=== PATIENT | male | born 1950 | race Caucasian/White ===

== ENCOUNTER 2019-09-11 18:59 | Inpatient (IN) ==
[2019-09-11] MEDS ORDERED: LEVOFLOXACIN INJ 750 MG in PREMIX 1 EACH IV STA (20:39)
[2019-09-11] MEDS ORDERED: methylPREDNISolone SOD SUC 125 MG/2 ML VIAL IV STA (20:39)
[2019-09-11] MEDS ORDERED: ALBUTEROL/IPRATROPIUM 3 ML NEB RESP TX STA (20:39)
[2019-09-11 21:23] LABS: Basophils # 0.1 10*3/uL (0.0-0.2); Basophils % 0.4 % (0.0-0.8); Eosinophils # 0.3 10*3/uL (0.0-0.87); Eosinophils % 2.7 % (0.00-10.9); Hematocrit 46.9 VOL% (42.0-52.0); Hemoglobin 14.7 GM/DL (14.0-18.0); Immature Granulocytes % 0.4 %; Immature Granulocytes Absolute 0.05 #; Lymphocytes # 1.1 10*3/uL (1.4-4.0); Lymphocytes % 9.2 % (21.2-54.2); Mean Corpuscular HGB Conc 31.3 GM/DL (32-36); Mean Corpuscular Volume 89.7 FL (87-102); Mean Platelet Volume 12.2 FL (9.6-12.0); Monocytes % 7.1 % (1.7-12.7); Neutrophils % 80.2 % (38.7-73.9); Platelet Count 162 T/CUMM (130-400); Red Blood Count 5.23 MC/CUMM (3.8-5.5); Red Cell Distribution Width 16.9 % (9.3-17.3); White Blood Count 12.1 T/CUMM (4-12)
[2019-09-11 21:44] LABS: Calcium 8.8 MG/DL (8.5-10.1)
[2019-09-11 21:48] LABS: CKMB % 0.7 %; Troponin I 0.016 NG/ML (0.00-0.045)
[2019-09-11] MEDS ORDERED: ONDANSETRON 4 MG/2 ML VIAL IV PRN (22:44)
[2019-09-11] MEDS ORDERED: ACETAMINOPHEN 325 MG TABLET PO PRN (22:44)
[2019-09-11] MEDS ORDERED: MORPHINE 4 MG/1 ML VIAL IV PRN (22:44)
[2019-09-11] MEDS ORDERED: ZALEPLON 5 MG CAPSULE PO PRN (22:44)
[2019-09-11] MEDS ORDERED: ALBUTEROL 2.5 MG/3 ML NEB RESP TX PRN (22:47)
[2019-09-11 23:24] LABS: Allen Test Positive
[2019-09-11 23:25] LABS: ABG Base Excess 0.3 MMOL/L (-2.5-2.5); ABG HCO3 24.6 MMOL/L (20-26); ABG Oxygen Saturation 94.8 % (95-100); ABG PCO2 35.6 MM HG (35-48); ABG PH 7.436 (7.35-7.45); ABG TCO2 20.3 MMOL/L (23-27)
[2019-09-11] MEDS: ALBUTEROL/IPRATROPIUM 3 ML NEB RESP TX SCH (23:35)
[2019-09-12] MEDS ORDERED: methylPREDNISolone SOD SUC 125 MG/2 ML VIAL IV SCH (02:00)
[2019-09-12] MEDS: ALBUTEROL/IPRATROPIUM 3 ML NEB RESP TX SCH ×4 (04:05→15:02)
[2019-09-12 05:15] LABS: Basophils % 0.2 % (0.0-0.8); Eosinophils % 0.2 % (0.00-10.9); Hematocrit 47.7 VOL% (42.0-52.0); Hemoglobin 14.9 GM/DL (14.0-18.0); Immature Granulocytes % 0.4 %; Immature Granulocytes Absolute 0.04 #; Lymphocytes # 0.5 10*3/uL (1.4-4.0); Lymphocytes % 4.5 % (21.2-54.2); Mean Corpuscular HGB Conc 31.2 GM/DL (32-36); Mean Corpuscular Volume 89.2 FL (87-102); Mean Platelet Volume 12.4 FL (9.6-12.0); Monocytes % 1.7 % (1.7-12.7); Platelet Count 171 T/CUMM (130-400); Red Blood Count 5.35 MC/CUMM (3.8-5.5); White Blood Count 10.9 T/CUMM (4-12)
[2019-09-12 05:33] LABS: Calcium 8.9 MG/DL (8.5-10.1); Osmolality,Calculated 289.1 MOS/KG (273-304)
[2019-09-12] MEDS ORDERED: CLORAZEPATE 7.5 MG TABLET PO PRN (05:52)
[2019-09-12 06:21] LABS: Lymphocytes 1 % (20-55); Metamyelocytes 1 %; Platelet Estimate Adequate; Polychromasia Few; Segmented Neutrophils 97 % (50-85); Total Cells Counted 100
[2019-09-12] MEDS: FUROSEMIDE 40 MG/4 ML VIAL IV SCH (08:23)
[2019-09-12] MEDS: METOPROLOL SUCCINATE XL 50 MG TABLET PO SCH (08:23)
[2019-09-12] MEDS: allopurinoL 300 MG TABLET PO SCH (08:23)
[2019-09-12] MEDS: PANTOPRAZOLE 40 MG TABLET PO SCH (08:23)
[2019-09-12] MEDS: TAMSULOSIN 0.4 MG CAPSULE PO SCH (08:23)
[2019-09-12] MEDS ORDERED: ENOXAPARIN 40 MG/0.4 ML SYRINGE SUBCUT SCH (09:00)
[2019-09-12] MEDS: methylPREDNISolone SOD SUC 40 MG/1 ML VIAL IV SCH ×2 (09:33→17:04)
[2019-09-12] MEDS: APIXABAN 5 MG TABLET PO SCH ×2 (11:06→22:10)
[2019-09-12] MEDS: PREGABALIN 75 MG CAPSULE PO SCH ×2 (11:06→22:10)
[2019-09-12] MEDS: BUDESONIDE 0.5 MG/2 ML NEB RESP TX SCH ×2 (11:17→19:58)
[2019-09-12] MEDS: ARFORMOTEROL 15 MCG/2 ML NEB RESP TX SCH ×2 (11:17→19:58)
[2019-09-12] MEDS ORDERED: FUROSEMIDE 40 MG/4 ML VIAL IV ONE (12:12)
[2019-09-12] MEDS: guaiFENesin/DM ER 600-30 MG TABLET PO SCH ×2 (12:51→22:10)
[2019-09-12] MEDS ORDERED: LEVOFLOXACIN INJ 750 MG in PREMIX 1 EACH IV SCH (21:00)
[2019-09-12] MEDS ORDERED: ATORVASTATIN 20 MG TABLET PO SCH (21:00)
[2019-09-12] MEDS ORDERED: MONTELUKAST 10 MG TABLET PO SCH (21:00)
[2019-09-12] MEDS ORDERED: PANTOPRAZOLE 40 MG TABLET PO SCH (21:00)
[2019-09-13] MEDS: ALBUTEROL/IPRATROPIUM 3 ML NEB RESP TX SCH ×2 (00:08→06:24)
[2019-09-13] MEDS: methylPREDNISolone SOD SUC 40 MG/1 ML VIAL IV SCH ×2 (02:19→09:33)
[2019-09-13 06:15] LABS: Basophils % 0.1 % (0.0-0.8); Hematocrit 44.3 VOL% (42.0-52.0); Hemoglobin 14.3 GM/DL (14.0-18.0); Immature Granulocytes % 0.6 %; Immature Granulocytes Absolute 0.09 #; Lymphocytes # 0.8 10*3/uL (1.4-4.0); Lymphocytes % 5.4 % (21.2-54.2); Mean Corpuscular HGB Conc 32.3 GM/DL (32-36); Mean Corpuscular Volume 87.4 FL (87-102); Mean Platelet Volume 12.6 FL (9.6-12.0); Monocytes % 4.4 % (1.7-12.7); Neutrophils % 89.5 % (38.7-73.9); Platelet Count 185 T/CUMM (130-400); Red Blood Count 5.07 MC/CUMM (3.8-5.5); Red Cell Distribution Width 17.2 % (9.3-17.3); White Blood Count 14.1 T/CUMM (4-12)
[2019-09-13] MEDS: ARFORMOTEROL 15 MCG/2 ML NEB RESP TX SCH (06:24)
[2019-09-13] MEDS: BUDESONIDE 0.5 MG/2 ML NEB RESP TX SCH (06:24)
[2019-09-13 06:39] LABS: Calcium 8.8 MG/DL (8.5-10.1); Osmolality,Calculated 288.5 MOS/KG (273-304)
[2019-09-13] MEDS: guaiFENesin/DM ER 600-30 MG TABLET PO SCH (09:30)
[2019-09-13] MEDS: APIXABAN 5 MG TABLET PO SCH (09:31)
[2019-09-13] MEDS: PREGABALIN 75 MG CAPSULE PO SCH (09:31)
[2019-09-13] MEDS: PANTOPRAZOLE 40 MG TABLET PO SCH (09:31)
[2019-09-13] MEDS: TAMSULOSIN 0.4 MG CAPSULE PO SCH (09:31)
[2019-09-13] MEDS: FUROSEMIDE 40 MG/4 ML VIAL IV SCH (09:32)
[2019-09-13] MEDS: METOPROLOL SUCCINATE XL 50 MG TABLET PO SCH (09:32)
[2019-09-13] MEDS: allopurinoL 300 MG TABLET PO SCH (09:32)
[2019-09-13] MEDS ORDERED: methylPREDNISolone ACETATE 40 MG/1 ML VIAL IM ONE (11:27)
[2019-09-13] MEDS ORDERED: DEXAMETHASONE 4 MG/1 ML VIAL IM ONE (11:27)
[2019-09-13 13:18] VITALS: BP 147/93
== END 2019-09-13 16:00 | disposition home or self-care (01) | DRG 202 ==
LOC: N.ED 18:59 → N.EDINP 22:44 → N.TELEN 09-12 01:16
PROVIDERS: ADMIT Hospitalist; ATTEND Hospitalist